=== PATIENT | male | born 1960 | race Caucasian/White ===

== ENCOUNTER → 2020-06-11 | Outpatient (CLI) | payer MEDICARE ==
[~2020-06-11] MED LIST: ATEN50TA41 PO; METH500T97 PO; OMNIPAQUE 350 MG/ML, 100ML BOTTLE ONE; OXYC20TA59 PO; OXYC5TAB3 PO; OXYM30TA PO; OXYM5TAB PO; SULF1TAB24 PO
== END | disposition home or self-care (01) ==
LOC: RAD 11:11
PROVIDERS: ATTEND Urology
DX: N20.0 Calculus of kidney (principal); N28.1 Cyst of kidney, acquired
CPT/HCPCS: 74178; Q9967